=== PATIENT | female | born 1945 | race African-American/Black ===

== ENCOUNTER → 2016-11-08 | Outpatient (CLI) | payer MEDICARE, OTHER ==
--- NOTE | 2016-11-08 22:22 | KCIC ---
Bilateral digital screening mammograms: Reason for examination: Routine screening. Comparison is made to previous study dated 02/01/2010. The skin and nipples show no abnormalities. No abnormal lymph nodes are seen. The breast parenchyma is predominantly fatty. (Breast density: Category A.) There is a small 5 mm nodular density in the 10:00 B position of the right breast. Recommend further evaluation with ultrasound. There are no other dominant masses, suspicious calcifications or architectural distortions. Impression: Small 5 mm nodule at the 10:00 B position of the right breast. Recommend further evaluation with ultrasound. BI-RADS Category 0: Incomplete. Ultrasound follow-up is recommended. "Our facility is accredited by the [employer] Mammography Program." This patient's information has been entered into a reminder system for the patient to be notified with the results of her examination and a target date for the next mammogram. Electronically signed by: Lilly Monteiro MD (11/08/2016 10:19 PM)
== END | disposition home or self-care (01) ==
LOC: KCIC MAMMO 15:39
PROVIDERS: ATTEND Preventive Medicine Public Health & General Preventive Medicine
DX: Z12.31 Encounter for screening mammogram for malignant neoplasm of breast (principal)
CPT/HCPCS: G0202; 77067

== ENCOUNTER → 2016-11-16 | Outpatient (CLI) | payer MEDICARE, OTHER ==
--- NOTE | 2016-11-16 12:53 | RAD ---
Indication: Right breast density. The patient presents for further evaluation. Correlation is made with screening mammogram from 11/08/2016. Sonography interrogation of the upper outer right breast was performed. Specifically, the 10:00 location B position was evaluated. No solid or cystic mass is identified to correlate with the mammographic abnormality. Impression: No sonographic abnormality is identified. Even so, follow-up right mammogram in 6 months is recommended to confirm stability of the previously noted nodular density at the 10:00 location. BI-RADS Category 3, probably benign.
== END | disposition home or self-care (01) ==
LOC: KCIC US 12:00
PROVIDERS: ATTEND Nurse Practitioner Family
DX: R92.8 Other abnormal and inconclusive findings on diagnostic imaging of breast (principal)
CPT/HCPCS: 76641

== ENCOUNTER → 2017-05-22 | Outpatient (CLI) | payer MEDICARE, OTHER | END | disposition home or self-care (01) | LOC: KCIC MAMMO 13:18 | DX: N64.89 Other specified disorders of breast (principal) | CPT/HCPCS: 77065; G0279 ==

== ENCOUNTER → 2017-10-23 | Outpatient (CLI) | payer MEDICARE, OTHER | END | disposition home or self-care (01) | LOC: KCIC US 07:59 | DX: K76.0 Fatty (change of) liver, not elsewhere classified (principal) | CPT/HCPCS: 76700 ==

== ENCOUNTER → 2018-04-26 | Outpatient (CLI) | payer MEDICARE, OTHER ==
--- NOTE | 2018-04-27 09:07 | KCIC ---
Bilateral hand x-rays 3 views each HISTORY: Polyarthralgia, bilateral hand pain. FINDINGS: Left hand demonstrates no fracture or dislocation. Osteoarthritis of the distal interphalangeal joints with mild osteophytes with lesser involvement of the proximal interphalangeal joints. Small chronic ossicles adjacent of some of the joints. No bony erosions. Soft tissues are unremarkable. Right hand demonstrates no fracture or dislocation. Osteoarthritis of the distal interphalangeal joints with osteophytes lesser involvement of some of the proximal interphalangeal joints. There is advanced osteoarthritic change with bulky osteophytes and mild angled deformity of the third distal interphalangeal joint. Mild osteoarthritis of the first carpometacarpal joint. No bony erosions. Soft tissues are unremarkable. IMPRESSION: No acute osseous injury. Osteoarthritic change as described above. Electronically signed by: Cam Krishnan MD (04/27/2018 9:03 AM) [facility]
== END | disposition home or self-care (01) ==
LOC: KCIC 11:45
PROVIDERS: ATTEND Internal Medicine Rheumatology
DX: M19.042 Primary osteoarthritis, left hand (principal); M19.041 Primary osteoarthritis, right hand; M25.742 Osteophyte, left hand; M25.741 Osteophyte, right hand; M20.091 Other deformity of right finger(s)
CPT/HCPCS: 73130

== ENCOUNTER → 2019-01-15 | Outpatient (CLI) | payer MEDICARE, OTHER ==
--- NOTE | 2019-01-15 11:24 | CARD ---
MR#: [id number] Date of Study: 01/15/2019 Ordering Physician: STEFANY WOODWARD, Referring Physician: STEFANY WOODWARD, Tech: Mary Salmeron APPROVED REPORT EXAM: Two-dimensional and M-mode echocardiogram with Doppler and color Doppler. INDICATION Chest Pain Murmur RISK FACTORS Hypertension Diabetes 2D DIMENSIONS RVDd3.5 (2.9-3.5cm)Left Atrium(2D)3.3 (1.6-4.0cm) IVSd1.1 (0.7-1.1cm)Aortic Root(2D)2.9 (2.0-3.7cm) LVDd4.6 (3.9-5.9cm)LVOT Diameter2.0 (1.8-2.4cm) PWd0.8 (0.7-1.1cm)LVDs3.3 (2.5-4.0cm) FS (%) 28.5 %SV52.3 ml LVEF(%)55.0 (>50%) Aortic Valve AoV Peak Sandor.149.9cm/sAoV VTI28.2cm AO Peak GR.9.0mmHgLVOT Peak Sandor.103.3cm/s LVOT VTI 22.25cmAO Mean GR.4mmHg ANGEL (VMAX)1.04we3DWO (VTI)2.49cm2 Mitral Valve MV E Lxqpczbr21.6cm/sMV DECEL LFRU463uj MV A Izzilnaf229.7cm/sMV NYQ39zc E/A Ratio0.5MVA (PHT)3.19cm2 TDI E/Lateral E'9.1E/Medial E'9.8 Pulmonary Valve PV Peak Hoqdzmkd33.8cm/sPV Peak Grad.4mmHg Tricuspid Valve TR P. Pvzazjfp946fy/sRAP MBIDEZPG4oyUw TR Peak Gr.51ktIwUKVH08hgVx Pulmonary Vein S1 Zvwpbljj90.0cm/sD2 Ntbpjmbc49.2cm/s PVa ogwiptfd680sxth LEFT VENTRICLE The left ventricle is normal size. There is borderline concentric left ventricular hypertrophy. The l eft ventricular systolic function is normal and the ejection fraction is within normal range. The Eje ction Fraction is 55%. There is normal LV segmental wall motion. Transmitral Doppler flow pattern is Grade I-abnormal relaxation pattern. RIGHT VENTRICLE The right ventricle is normal size. There is normal right ventricular wall thickness. The right ventr icular systolic function is normal. ATRIA The left atrium size is normal. The right atrium size is normal. The atrial septum is aneurysmal. AORTIC VALVE The aortic valve is calcified but opens well. Doppler and Color Flow revealed no significant aortic r egurgitation. There is no significant aortic valvular stenosis. MITRAL VALVE The mitral valve is normal in structure and function. There is no evidence of mitral valve prolapse. There is no mitral valve stenosis. Doppler and Color Flow revealed no mitral valve regurgitation note d. TRICUSPID VALVE The tricuspid valve is normal in structure and function. Doppler and Color Flow revealed trace to mil d tricuspid regurgitation with an estimated PAP of 33 mmHg. There is no tricuspid valve stenosis. PULMONIC VALVE The pulmonary valve is normal in structure and function. Doppler and Color Flow revealed trace pulmon ic valvular regurgitation. There is no pulmonic valvular stenosis. GREAT VESSELS The aortic root is normal in size. The IVC is normal in size and collapses >50% with inspiration. PERICARDIAL EFFUSION There is no evidence of significant pericardial effusion. Critical Notification Critical Value: No <Conclusion> The left ventricular systolic function is normal and the ejection fraction is within normal range. Th e Ejection Fraction is 55%. There is normal LV segmental wall motion. The atrial septum is aneurysmal. Signed by : Nelson Gomez, Electronically Approved : 01/15/2019 11:24:26
== END | disposition home or self-care (01) ==
LOC: ECHO 08:47
PROVIDERS: ATTEND Preventive Medicine Public Health & General Preventive Medicine
DX: I08.2 Rheumatic disorders of both aortic and tricuspid valves (principal)
CPT/HCPCS: 93306

== ENCOUNTER → 2020-12-17 | Outpatient (CLI) | payer MEDICARE, OTHER ==
--- NOTE | 2020-12-17 10:47 | KCIC ---
EXAM: DUAL ENERGY X-RAY ABSORPTIOMETRY (DEXA). HISTORY: Postmenopausal screening. FINDINGS: The lowest measured T-score is +2.0 in the left total femur, based on a bone mineral densit y of 1.181 g/cm^2. Refer to the worksheets for full detail. No comparison examinations are available. IMPRESSION: Normal. Bone mineral density yields a T-score of -1.0 or greater. Fracture risk is low. FRAX was not calculated. METHODOLOGY: Dual energy x-ray absorptiometry was performed to measure bone mineral density. The foll owing analysis is based on the 2019 Official Positions of the International Society for Clinical Dens itometry: Measurements of the hips and the average of L1-L4 are preferred. When the spine and/or hip cannot be feasibly measured or interpreted, or in the setting of hyperparathyroidism, distal radial bone minera l density may be measured. The lumbar spine T-score is based on the average bone mineral density of L1-L4. In the setting of art ifact or anatomic abnormality, some lumbar levels may be excluded, and the remaining levels used for calculation. A single lumbar level is not used for diagnosis, and if only a single level is available for assessment, another anatomic site will be used to assign a diagnosis. The hip T-score is based on the bone mineral density measurement of the femoral neck or total proxima l femur of either side, whichever is lowest. Bilateral mean values are not used for diagnosis. The forearm T-score is derived from 33% of the distal radius of the nondominant forearm. For postmenopausal and perimenopausal women, and men age 50 or older, of all ethnic groups, T-scores are calculated through comparison of the current measurement with the NHANES III database standard fo r females aged 20-29 years. The lowest T-score of the evaluated anatomic sites is used to a ssign a diagnosis based on the World Health Organization densitometric classification. In premenopausal females and males younger than age 50, a Z-score is calculated based on population s pecific reference data for patient sex and self-reported ethnicity. Electronically signed by: Madalyn Resendez MD (12/17/2020 10:45 AM) [facility]
--- NOTE | 2020-12-17 11:14 | KCIC ---
EXAM: Bilateral screening mammogram. HISTORY: 75-year-old female presents for screening mammography. TECHNIQUE: Full-field digital craniocaudal and mediolateral oblique views of both breasts are obtaine d for evaluation. Computer aided detection was applied. COMPARISON: 05/22/2017 BREAST PARENCHYMAL DENSITY: Level A - Mostly fat. FINDINGS: There has been interval increase in nodular asymmetry within the lateral aspect of the righ t breast at mid depth in the craniocaudal projection. There is no convincing correlate on the mediola teral oblique projection. However, this is likely at the 10:00 position. There are additional areas o f asymmetry which are stable in appearance. There are a few benign calcifications. IMPRESSION: BI-RADS Category 0: Incomplete. Additional imaging needed. RECOMMENDATION: Further evaluation with a spot compression craniocaudal view and full-field true late ral view of the right breast to assess nodular asymmetry within the lateral breast at mid depth is re commended. Rolled craniocaudal images and sonographic imaging can also be performed if deemed indicat ed based on additional mammographic findings. If your mammogram demonstrates that you have dense breast tissue, which could hide abnormalities, and if you have other risk factors for breast cancer that have been identified, you might benefit from s upplemental screening tests that may be suggested by your ordering physician. Dense breast tissue, i n and of itself, is a relatively common condition. This information is not provided to cause undue c oncern, but rather to raise your awareness and to promote discussion with your physician regarding th e presence of other risk factors, in addition to dense breast tissue. A report of your mammography re sults will be sent to you and your physician. You should contact your physician if you have any ques tions or concerns regarding this report. Mammography is a sensitive method for finding small breast cancers, but it does not detect them all a nd is not a substitute for careful clinical examination. A negative mammogram does not negate a clin ically suspicious finding and should not result in delay in biopsying a clinically suspicious abnorma lity. PQRS compliance statement - Patient information was entered into a reminder system with a target due date for the next mammogram. "Our facility is accredited by the [employer] Mammography Program." Electronically signed by: Rose Sosa MD (12/17/2020 11:11 AM) [place] [id number]
== END ==
LOC: KCIC MAMMO 08:47
PROVIDERS: ATTEND Preventive Medicine Public Health & General Preventive Medicine
DX: Z12.31 Encounter for screening mammogram for malignant neoplasm of breast (principal); M81.0 Age-related osteoporosis without current pathological fracture; R92.1 Mammographic calcification found on diagnostic imaging of breast
CPT/HCPCS: 77067; 77080

== ENCOUNTER → 2021-01-04 | Outpatient (CLI) | payer MEDICARE, OTHER ==
--- NOTE | 2021-01-04 11:15 | KCIC ---
INDICATION: 75 year-old female presents for follow-up abnormal right breast mammogram. No family hist ory of breast cancer indicated. TECHNIQUE: Full field 2-D 90 degree true lateral right breast mammogram in the ML projection and spot compression mammogram in the CC projection Targeted high resolution sonography of the region of conc tobi was also performed. COMPARISON: Mammogram 12/17/2020 BREAST COMPOSITION: The asymmetry seen in the lateral aspect of the breast, middle depth partially di ssipates on spot compression. Targeted left breast ultrasound at the 10:00 position reveals scattered normal-appearing fibroglandular tissue. There is no suspicious mass. This is felt to correlate with the mammographic finding. Normal-appearing right axillary lymph nodes. FINDINGS: No significant masses, suspicious calcifications, or other findings suggestive of malignancy. Normal targeted right breast ultrasound. IMPRESSION: No evidence of malignancy. RECOMMENDATION: Return to routine screening mammogram in one year. BI-RADS 2: Benign findings. Electronically signed by: Vasiliy Melara DO (01/04/2021 11:12 AM) [id number]
== END ==
LOC: KCIC MAMMO 10:06
PROVIDERS: ATTEND Preventive Medicine Public Health & General Preventive Medicine
DX: R92.8 Other abnormal and inconclusive findings on diagnostic imaging of breast (principal)
CPT/HCPCS: 76641; 77065